=== PATIENT | male | born 1990 | race Caucasian/White ===

== ENCOUNTER 2025-09-27 07:16 | Emergency (ER) | payer OTHER, SELFPAY ==
--- OUTSIDE RECORDS SUMMARY | 2011-01-14 09:30 | XMS_ITS | Continuity of Care Document ---
Author Organization [facility] Address [address] [place] [address] Phone Care Team Providers Care Fisher Troll Line Name Role Phone Kaushal Leary Unavailable Unavailable Procedures Procedure Date OFFICE/OUTPATIENT VISIT, [facility] SPECIMEN HANDLING OFFICE/OUTPATIENT VISIT, [facility] TDAP VACCINE >7 IM Advance Directives Directive Yes / No Effective Date File Name No Information Encounters Encounter Description Practice Location Reason(s) For Visit Diagnoses Date Provider Providers Copied on Encounter OFFICE/OUTPAT IENT VISIT, [facility], [address], [place], [id number], [place] tel:[phone] [facility] No Information Sapphire Easley. [address], [place], [id number], [place]. tel:[phone] OFFICE/OUTPAT IENT VISIT, [facility], [address], [place], [id number], [place] tel:[phone] [facility] No Information Visci DO Donn. [address], [place], [id number], [place]. tel:[phone] Family History Family Member Type Diagnosis Age At Onset No Information Payers Payer name Insurance type Covered republican ID Authoriza tion(s) [employer] CI [id number] Social History Type Description Quantity Date Captured Comments Sex Male Smoking Status No Information Chief Complaint And Reason For Visit No Information Reason For Referral Reason For Referral No Information History Of Present Illness Encounter Date Complaint History Of Prese nt Illness No Information Functional Status Date Functional Assessmen t No Information Instructions Date Instruction Additional Infor mation No Information Assessments Type Assessment Date No Information Patient Care Teams Name Effective Dates (start - stop) Status Members No Information
[2025-09-27 07:23] VITALS: BP 140/90; PULSE 92; TEMP 36.6; O2SAT 99; BMI 25.0
--- NOTE | 2025-09-27 07:40 | ED_ITS ---
HPI HPI - General Adult General Chief complaint: Abdominal Pain Stated complaint: abdominal pain Time Seen by Provider: 09/27/25 07:25 Source: patient Mode of arrival: walk-in Limitations: no limitations History of Present Illness HPI narrative: 34-year-old male presents for the concern of kidney stones. He states he has been having some intermittent hematuria for a few days but has not had any specific flank or groin pain. He also states over the past 3 to 4 days he has had some epigastric pain with eating. It is a fullness. He does not drink alcohol heavily and has never had pancreatitis. No trauma to the abdomen. No fever chest pain or vomiting. Related Data Home Medications ?Medication ?Instructions ?Recorded ?Confirmed sertraline 50 mg tablet mg 09/27/25 Previous Rx's ?Medication ?Instructions ?Recorded hydrocodone 5 mg-acetaminophen 325 1 tab PO Q6H PRN pa in 5 days #20 09/27/25 mg tablet tabs ondansetron 4 mg disintegrating 4 mg PO Q6H PRN nausea and 09/27/25 tablet vomiting #20 tabs tamsulosin 0.4 mg capsule (Flomax) 0.4 mg PO DAILY #7 caps 09/27/25 Allergies Allergy/AdvReac Type Severity Reaction Status Date / Time No Known Drug Allergies Allergy Verified 09/27/25 07:23 Review of Systems ROS Narrative A ten point review of systems is negative except as noted above. PFSH PFSH Social History Little interest or pleasure in doing things: not at all Feeling down, depressed, or hopeless: not at all Exam Narrative Exam Narrative: Nurses note and vital signs reviewed General:The patient appears well and in no apparent distress.Patient is resting comfortably on cart. Skin:Warm, dry, no pallor noted.There is no rash noted. Head:Normocephalic, atraumatic Eye: Normal conjunctiva, no drainage Ears, Nose, Mouth, and Throat: oral mucosa is moist. Nares patent. Cardiovascular:Regular Rate and Rhythm Respiratory:Patient is in no distress, no accessory muscle use, lungs are clear to auscultation, no wheezing, rales or rhonchi Back:non-tender, no CVA tenderness bilaterally to percussion. GI: Mild tenderness in the epigastric area. No distention or masses. Musculoskeletal: The patient has no evidence of calf tenderness, no pitting edema, symmetrical pulses noted bilaterally Neurological:A&O, normal speech Psychiatric:Cooperative Constitutional Vital Signs, click to edit/add: Last Vital Signs Temp 97.8 F 09/27/25 07:23 Pulse 92 H 09/27/25 07:23 Resp 18 09/27/25 07:23 BP 140/90 09/27/25 07:23 Pulse Ox 99 09/27/25 07:23 O2 Del Method Room Air 09/27/25 07:23 Course Vital Signs Vital signs: Vital Signs Temperature 97.8 F 09/27/25 07:23 Pulse Rate 92 H 09/27/25 07:23 Respiratory Rate 18 09/27/25 07:23 Blood Pressure 140/90 09/27/25 07:23 Pulse Oximetry 99 09/27/25 07:23 Oxygen Delivery Method Room Air 09/27/25 07:23 Temperature 97.8 F 09/27/25 07:23 Pulse Rate 92 H 09/27/25 07:23 Respiratory Rate 18 09/27/25 07:23 Blood Pressure 140/90 09/27/25 07:23 Pulse Oximetry 99 09/27/25 07:23 Oxygen Delivery Method Room Air 09/27/25 07:23 Medical Decision Making MDM Narrative Medical decision making narrative: 3 mm stone is identified at the left UPJ junction. He is prescribed Flomax, Reedy, and Zofran and referred to urology. He was given a urine strainer and a specimen cup. Treatment diagnosis and follow-up were discussed with the patient. In terms of the epigastric pain, no specific findings were found on his testing. Gallbladder appears normal and liver and pancreas have normal blood work as well. Differential Diagnosis Differential Diagnosis: Kidney stone, UTI, pyelonephritis, gallbladder disease Lab Data Lab results reviewed: Yes I reviewed the patient's lab results Labs: Lab Results 09/27/25 09/27/25 Range/Units 07:30 07:33 WBC 12.0 H (4.0-11.0) 10^3/uL RBC 5.06 (4.70-6.10) 10^6/uL Hgb 15.9 (14.0-18.0) g/dL Hct 45.6 (42.0-54.0) % MCV 90.1 (80.0-94.0) fL MCH 31.4 (25.9-34.0) pg MCHC 34.9 (29.9-35.2) g/dL RDW 11.9 (11.0-15.0) % Plt Count 364 (150-450) 10^3/uL MPV 8.9 L (9.5-13.5) fL Neut % (Auto) 70.1 (43.0-75.0) % Lymph % (Auto) 16.9 L (20.5-60.0) % Lamar % (Auto) 10.0 (1.7-12.0) % Eos % (Auto) 2.2 (0.9-7.0) % Baso % (Auto) 0.5 (0.2-2.0) % Neut # (Auto) 8.4 H (1.4-6.5) 10^3/uL Lymph # (Auto) 2.0 (1.2-3.8) 10^3/uL Lamar # (Auto) 1.2 H (0.3-0.8) 10^3/uL Eos # (Auto) 0.3 (0.0-0.7) 10^3/uL Baso # (Auto) 0.1 (0.0-0.1) 10^3/uL Abs Immat Gran (auto) 0.03 (0.00-0.03) 10^3/uL Imm/Tot Granulo (auto) 0.3 (0.0-0.5) % Sodium 142 (136-145) mmol/L Potassium 3.9 (3.5-5.1) mmol/L Chloride 104 (98-107) mmol/L Carbon Dioxide 28.1 (21.0-32.0) mmol/L Anion Gap 13.8 BUN 11.0 (7.0-18.0) mg/dL Creatinine 0.94 (0.70-1.30) mg/dL Est GFR ( Amer) >60 (>=60 mL/min/1.73m^2) Est GFR (Non-Af Amer) >60 (>=60 mL/min/1.73m^2) BUN/Creatinine Ratio 11.7 Glucose 112 H (74-106) mg/dL Calcium 9.4 (8.5-10.1) mg/dL Total Bilirubin 0.8 (0.2-1.0) mg/dL Direct Bilirubin 0.2 (0.0-0.2) mg/dL AST 16 (15-37) U/L ALT 29 (16-63) U/L Alkaline Phosphatase 66 (46-116) U/L Total Protein 8.2 (6.4-8.2) g/dL Albumin 4.4 (3.4-5.0) g/dL Globulin 3.8 g/dL Albumin/Globulin Ratio 1.2 Amylase 59 (25-115) U/L Lipase 23.0 (16.0-77.0) U/L Urine Color Yellow (YELLOW) Urine Clarity Slightly cloudy A (CLEAR) Urine pH 6.0 (5.0-9.0) Ur Specific [place] 1.025 (1.005-1.025) Urine Protein 100 A (NEG/TRACE) mg/dL Urine Glucose (UA) Negative (NEGATIVE) mg/dL Urine Ketones Trace A (NEGATIVE) mg/dL Urine Occult Blood Large A (NEGATIVE) Urine Nitrite Negative (NEGATIVE) Urine Bilirubin Negative (NEGATIVE) Urine Urobilinogen 1.0 (0.2-1.0) EU/dL Ur Leukocyte Esterase Trace A (NEGATIVE) Urine RBC 75-100 A (0-2) #/HPF Urine WBC 0-2 A (NONE SEEN) #/HPF Ur Squamous Epith Cells None seen (NONE/RARE) #/LPF Urine Crystals None seen (None Seen) #/HPF Urine Bacteria Trace A (NONE SEEN) #/HPF Urine Casts None seen (NONE SEEN) #/LPF Urine Mucus Small A (NONE SEEN) Urine Sperm Seen Ur Culture Indicated? No Imaging Data CT scan - abdomen: Radiologist's impression: ITS Impressions Abdomen/Pelvis CT 09/27/25 07:50 IMPRESSION: BILATERAL NEPHROLITHIASIS. PARTIALLY OBSTRUCTING LEFT URETEROPELVIC JUNCTION STONE. Impression dictated by: Kimberley Lisa M.D. 09/27/2025 8:26 AM Dictation Location: [place] [address] Electronically authenticated by: [id number] Y Date: 09/27/2025 08:26 Discharge Plan Discharge Chief Complaint: Abdominal Pain Clinical Impression: Kidney stone Patient Disposition: Home, Self-Care Time of Disposition Decision: 08:52 Condition: Good Mode of Transportation: Private Vehicle Prescriptions / Home Meds: New hydrocodone-acetaminophen 5-325 mg tablet 1 tab PO Q6H PRN (Reason: pain) 5 Days Qty: 20 0RF tamsulosin [Flomax] 0.4 mg capsule 0.4 mg PO DAILY Qty: 7 0RF ondansetron 4 mg tablet,disintegrating 4 mg PO Q6H PRN (Reason: nausea and vomiting) Qty: 20 0RF No Action sertraline 50 mg tablet Print Language: Luxembourger Instructions: Kidney Stones (ED), How to Strain Your Urine (ED) Referrals: DEAN PICHARDO [Primary Care Provider, Family Practice] - 1 week Julio Norwood MD [Physician, Urology]
[2025-09-27 07:45] LABS: Hematocrit 45.6 % (42.0-54.0); Hemoglobin 15.9 g/dL (14.0-18.0); Immature Granulocytes Abs Auto 0.03 10^3/uL (0.00-0.03); Immature Granulocytes Pct Auto 0.3 % (0.0-0.5); Lymphocytes Absolute Auto 2.0 10^3/uL (1.2-3.8); Mean Corpuscular HGB Conc 34.9 g/dL (29.9-35.2); Mean Corpuscular Hemoglobin 31.4 pg (25.9-34.0); Mean Corpuscular Volume 90.1 fL (80.0-94.0); Platelet Count 364 10^3/uL (150-450); Red Blood Count 5.06 10^6/uL (4.70-6.10); White Blood Count 12.0 10^3/uL (4.0-11.0)
[2025-09-27 07:46] LABS: Glucose Urine UA NEGATIVE (NEGATIVE)
--- NOTE | 2025-09-27 07:50 | CT_ITS ---
The [address] [address] Patient Name: RIN COX MRN: [id number] date: 1990 Sex: M Assigned Patient Location: ER Current Patient Location: .[facility] Accession/Order Number: [id number] Exam Date: 09/27/2025 07:47 Report Date: 09/27/2025 08:26 At the request of: HO PALMA MD Procedure: CT abdomen pelvis wo con CT ABDOMEN AND PELVIS WITHOUT CONTRAST COMPARISON: None CLINICAL DATA: Low back pain and hematuria. History of kidney stones. Spiral axial unenhanced images were obtained through the abdomen and pelvis. This CT exam was performed using one or more following dose reduction techniques: Automated exposure control, adjustment of the mA and/or kV according to patient size, or use of iterative reconstruction technique. Limited cuts through the lung bases show no contributory findings. Evaluation of the intra-abdominal organs is slightly limited by the absence of contrast. No calcified gallstones are identified. No intrahepatic masses are seen. The spleen, pancreas and adrenal glands show no acute findings. There are tiny bilateral renal stones measuring up to 4 mm in size. There is mild left hydronephrosis. This is secondary to a stone at the ureteropelvic junction which measures 3 mm in size. No additional ureteral dilatation or stones are seen. The abdominal aorta is normal caliber. There are small retroperitoneal and mesenteric lymph nodes. No ascites is identified. There is a tiny umbilical hernia containing fat. There is suggestion of potential malrotation with colon on the left and small bowel on the right. The small bowel loops are not distended. The colon is decompressed and there is apparent wall thickening. Subtle thoracolumbar levoscoliotic curvature is seen at the spine. Images through the pelvis show no dilated small bowel. There is stool at the rectosigmoid colon. No diverticular disease is seen. The prostate is within normal limits for size. The urinary bladder is poorly distended for assessment. There are small benign-appearing inguinal lymph nodes. No ascites is seen. CT/CT abdomen pelvis wo con IMPRESSION: BILATERAL NEPHROLITHIASIS. PARTIALLY OBSTRUCTING LEFT URETEROPELVIC JUNCTION STONE. Impression dictated by: Kimberley Lisa M.D. 09/27/2025 8:26 AM Dictation Location: [place] [address] Electronically authenticated by: [id number] Y Date: 09/27/2025 08:26
[2025-09-27 08:00] LABS: Alanine Aminotransferase 29 U/L (16-63); Albumin Globulin Ratio 1.2; Albumin Level 4.4 g/dL (3.4-5.0); Alkaline Phosphatase 66 U/L (46-116); Amylase 59 U/L (25-115); Anion Gap 13.8; Aspartate Amino Transferase 16 U/L (15-37); Blood Urea Nitrogen 11.0 mg/dL (7.0-18.0); Calcium 9.4 mg/dL (8.5-10.1); Carbon Dioxide 28.1 mmol/L (21.0-32.0); Chloride 104 mmol/L (98-107); Estimated GFR (African America >60 (>=60 mL/min/1.73m^2); Estimated GFR (Non-African Ame >60 (>=60 mL/min/1.73m^2); Globulin 3.8 g/dL; Glucose 112 mg/dL (74-106); Lipase 23.0 U/L (16.0-77.0); Potassium 3.9 mmol/L (3.5-5.1); Sodium 142 mmol/L (136-145); Total Protein 8.2 g/dL (6.4-8.2)
[2025-09-27 08:06] LABS: Cast Seen? NONE SEEN #/LPF (NONE SEEN); Crystals Seen? None Seen #/HPF (None Seen); Urine Culture Indicated NO
--- OUTSIDE RECORDS SUMMARY | 2025-09-27 08:22 | XMS_ITS | Clinical Summary ---
Author Organization [facility] Address [address], [address] [place] [address] Care Team Providers Care Extrusion Press Supervisor Name Role Phone Frank Hart DO Primary Care Provider Unava ilable Allergies No known active allergies Medications MedicationSigDispense QuantityRefillsLast FilledStart DateEnd DateStatus sertraline (ZOLOFT) 50 MG tablet Take 1 tablet by mouth dailyActive sertraline (ZOLOFT) 25 MG tablet Take 1 tablet by mouth dailyActive atomoxetine (STRATTERA) 40 MG capsule Take 1 capsule by mouth daily06/09/2024ctive Active Problems ProblemNoted DateDiagnosed DateUreteral tpuafsex18/22/2024enal calculus 08/17/2024 Social History Tobacco UseTypesPacks/DayYears UsedDateSmoking Tobacco: Every DayCigarettes Smokeless Tobacco: Never Tobacco Cessation:Ready to Q uit: No; Counseling Given: Yes Alcohol UseStandard Drinks/WeekCommentsYes0 (1 standard drink = 0.6 oz pure alcohol)SociallyAUDIT-CAnswerDate RecordedQ1: How often do you have a drink containing alcohol?Never08/17/2024Q2: How many drinks containing alcohol do you have on a typical day when you are drinking?Patient does not drink08/17/2024Q3: How often do you have six or more drinks on one occasion?Never08/17/2024 Interpersonal Safety Domain Source: IP Abuse ScreeningAnswerDate Recorded Physical cxmpoRhkgar61/24/2024Verbal ppeiiUmbaqa43/24/2024Emotional abuseDenies 08/19/2024Financial izldzGtvuiy46/24/2024Sexual ksxfnPgdisj35/24/2024Sex and Gender InformationValueDate RecordedSex Assigned at BirthNot on fileLegal Sex Male08/17/2024 10:55 AM EDTGender IdentityNot on fileSexual OrientationNot on file Last Filed Vital Signs Vital SignReadingTime TakenCommentsBlood Vcuiwjsb513/6610/15/2024 9:10 AM EST Jnoqn324108/19/2024 10:30 AM SNGQyebhkjsjir13.9 ??C (96.6 ??F)10/15/2024 9:10 AM ESTRespiratory Bwib5033 10:30 AM EDTOxygen Juzrfdebix785%08/19/2024 10:30 AM EDTInhaled Oxygen Concentration--Fazjja72.4 kg (164 lb)10/15/2024 9:10 AM CWHWrjxhr977.6 cm (5' 6 )10/15/2024 9:10 AM ESTBody Mass Index26.4710/15/2024 9:10 AM EST Plan of Treatment DateTypeDepartmentCare Team (Latest Contact Info)Exwsvetqwyg57/19/2025 10:30 AM ESTOffice Visit [facility] Part of [address] [place] [phone] Azul Armendariz, ASPHALT DISTRIBUTOR OPERATOR - SNOWBOARDING INSTRUCTOR [address] [place] [address] [address] [place] [address] one year KUBHealth MaintenanceDue DateLast DoneCommentsDepression Screen 2003Varicella vaccine (1 of 2 - 13+ 2-dose series)2004HIV screen 2006Hepatitis C dzjijq7710/27/2009Hepatitis B vaccine (1 of 3 - 19+ 3-dose series)2010Pneumococcal 0-49 years Vaccine (1 of 2 - PCV)2010 DTaP/Tdap/Td vaccine (7 - Td or Tdap), 06/20/1997, 04/25/1993, Additional history existsFlu vaccine (#1)/1COVID- 19 Vaccine ( season)511/10/2022, 07/28/2021, 07/07/2021Hib mrdjlglHyvfiesdp15/30/1993, 09/04/1992, 05/19/1992, Additional history exists Polio hggjamyWjuxqafnp14/25/1997, 04/25/1993, 05/19/1992, Additional history existsHPV vaccine (No Doses Required)CompletedHepatitis A vaccineAged OutNo longer eligible based on patient's age to complete this topicMeningococcal (ACWY) vaccineAged OutNo longer eligible based on patient's age to complete this topicMeningococcal B vaccineAged OutNo longer eligible based on patient's age to complete this topic Medical Devices ImplantedTypeAreaManufacturerDevice IdentifierShelf Expiration DateModel / Serial / LotStent Uret 6fr L26cm Hydr+ Pgtl Tapr Tip Grad Bldr Mrk Lo - [id number] Implanted:Qty: 1 on 08/19/2024 [facility]04/[id number] / / [id number] Insurance MemberSubscriberPlan / Payer (Effective 2023-Present)Name:Isaiah Bradshaw Relation to Subscriber:SelfName:Isaiah Bradshaw Payer ID:Not on file Group ID:Not on file Type:[place] Address: [place] [id number] Advance Directives * Full Code (Latest Code Status on File) Date ActivatedDate AqyuzxpghsuIlgxkcxz45/24/2024 8:47 AM08/19/2024 12:52 PM Care Teams Team MemberRelationshipSpecialtyStart DateEnd Date Frank Hart DO [address] [place] [address] [facility] Fxabordf59/22/24
--- OUTSIDE RECORDS SUMMARY | 2025-09-27 08:22 | XMS_ITS | Clinical Summary ---
Author Organization [facility] Address [facility] [place] [address] Care Team Providers Care Computer Peripheral Equipment Operator Name Role Phone Thomasmila Frank Isaías ESPINAL Primary Care Provider [phone] Allergies No known active allergies Medications MedicationSigDispense QuantityRefillsLast FilledStart DateEnd DateStatus sertraline (ZOLOFT) 50 MG tablet TAKE 1 AND 1/2 TABLETS DAILY FOR POBXEXB9510/09/2020Active ondansetron (Zofran ODT) 4 MG disintegrating tablet Dissolve 1 (one) tablet (4 mg total) on top of tongue every 8 (eight) hours as needed for nausea . 15 tablet 10/24/2020Active Social History Tobacco UseTypesPacks/DayYears UsedDateSmoking Tobacco: NeverSmokeless Tobacco: NeverAlcohol UseStandard Drinks/WeekCommentsNot Currently0 (1 standard drink = 0.6 oz pure alcohol)Sex and Gender InformationValueDate RecordedSex Assigned at BirthNot on fileLegal JtaSnxf0702/19/2014 4:42 AM EDTGender IdentityNot on file Sexual OrientationNot on file Last Filed Vital Signs Vital SignReadingTime TakenCommentsBlood Sucatdsg834/7110/24/2020 7:39 PM EST Kojaz299410/24/2020 7:39 PM EGCLnkqlnnszjq26.2 ??C (99 ??F)10/24/2020 5:25 PM EST Respiratory Gyvg425012/25/2019 7:39 PM ESTOxygen Sxzevnjopj36%10/24/2020 7:39 PM ESTInhaled Oxygen Concentration--Enxcef49.5 kg (140 lb)10/24/2020 5:25 PM EST Ogibbq092.6 cm (5' 6 )10/24/2020 5:25 PM ESTBody Mass Index22.6112/25/2019 5:25 PM EST Plan of Treatment Health MaintenanceDue DateLast DoneCommentsMMR Vaccines (1 of 1 - Standard series)1992Wellness Visit1994Depression Screening/Follow-Up (PHQ-2/9)2003Varicella Vaccines (1 of 2 - 13+ 2-dose series)2004HIV Vzxhacnau97/01/2007Hepatitis C Cjtnetdth82/01/2010Hepatitis B Vaccines (1 of 3 - 19+ 3-dose series)2010Tetanus/Diphtheria/Pertussis (1 - Tdap)2010HPV Vaccines (1 - 3-dose SCDM series)2018COVID-19 Vaccine (1 - season) 2025Influenza Vaccine (#1)2025Zoster Vaccines (1 of 2)2RSV Vaccines (1 - 1-dose 75+ series)2066HIB VaccinesAged OutNo longer eligible based on patient's age to complete this topicHepatitis A VaccinesAged OutNo longer eligible based on patient's age to complete this topicIPV VaccinesAged OutNo longer eligible based on patient's age to complete this topicMeningococcal ACWY VaccineAged OutNo longer eligible based on patient's age to complete this topicMeningococcal B VaccineAged OutNo longer eligible based on patient's age to complete this topicPneumococcal VaccineAged OutNo longer eligible based on patient's age to complete this topicRotavirus VaccinesAged OutNo longer eligible based on patient's age to complete this topic Insurance * Guarantor: Isaiah Bradshaw TypeRelation to PatientDate of BirthPhone Billing AddressPersonal/PhnwxdJpam22/01/1991 [id number] (Home) [address] [place] [address] Care Teams Team MemberRelationshipSpecialtyStart DateEnd Date Frank Hart DO [address] [place] [address] [facility] Tvpnbgiv76/29/20
--- OUTSIDE RECORDS SUMMARY | 2025-09-27 08:22 | XMS_ITS | Clinical Summary ---
Author Organization [facility] Address [id number] [address] [place] [address] Care Team Providers Care Autocad Detailer Name Role Phone Frank Hart Primary Care Provider Allergies No known active allergies Medications No known medications Active Problems ProblemNoted DateDiagnosed AcpyKxkqzwjyxinwekx12/24/2018 Overview (12/17/2017): ==== 11/19/2017 ==== history of stones in the past. Past 1 in August 2017. No currently with abouta 5 day history of right renal colic. CT scan a few days ago demonstrated a 6.3 mm proximal right ureteral calculus. Also had some nonobstructing stones on the right. Left looked good. On tamsulosin.He is reasonably comfortable. No fevers no chills. ==== 12/17/2017 ==== despite medical expulsive therapy patient has stability of the stone. Assessment & Plan (12/17/2017 3:05 PM EST): He certainly demonstrated the fact that this has a very low likelihood of spontaneous stone passageand therefore we should treat the stone. He also has some nonobstructing stones higher up. Discussed ureteroscopy versus ESWL. Ross we could benefit of treating all the stones in 1 setting. Wishes todo so. This will be set up. Urologic szzikeiz65/24/2018 Overview (11/19/2017): CT scan demonstrated non urologic GI findings. I informed the patient of such. They did recommend aadditional study. I gave a copy of the patient's report to him he is to contact his primary care regarding this Assessment & Plan (12/17/2017 3:04 PM EST): Pt confirmed that he discussed this with his primary MD Family History Medical HistoryRelationNameCommentsNo Known ProblemsBrotherNo Known Problems FatherNephrolithiasisMotherNo Known ProblemsSisterRelationNameStatusComments BrotherAliveFatherAliveMotherAliveSisterAlive Social History Tobacco UseTypesPacks/DayYears UsedDateSmoking Tobacco: Every DayCigarettes Smokeless Tobacco: NeverAlcohol UseStandard Drinks/WeekCommentsYes0 (1 standard drink = 0.6 oz pure alcohol)occasionalChildcareAnswerDate RecordedChildcare Tvjeied3404/08/2019EmploymentAnswerDate DusicnkoHlmmevzwpjNscbaex06/13/2019Purpose - LifeAnswerDate RecordedPurpose and direction in fuatZtrdsqh54/11/2021Sex and Gender InformationValueDate RecordedSex Assigned at BirthNot on fileLegal Sex Male11/15/2017 3:54 AM ESTGender IdentityNot on fileSexual OrientationNot on file Last Filed Vital Signs Vital SignReadingTime TakenCommentsBlood Zyfzplrw916/8403 8:49 AM EST Nzxqq721812/30/2017 8:49 AM ZRFYfcoltbnmtk36.6 ??C (97.9 ??F)12/30/2017 8:49 AM ESTRespiratory Tjuv5411 8:49 AM ESTOxygen Qclrqytber263%12/30/2017 8:49 AM ESTInhaled Oxygen Concentration--Abpwgw43.3 kg (144 lb)12/30/2017 8:49 AM EST Qugugb072.6 cm (5' 6 )12/30/2017 8:49 AM ESTBody Mass Index23.24012/30/2017 8:49 AM EST Plan of Treatment Health MaintenanceDue DateLast DoneCommentsDepression Hgthvfogl39/01/2004Tobacco Ungbcphmq95/01/2004Adult BMI Hosuhnnui19/01/2010DTaP,Tdap and Td Vaccines (1 - Tdap)2010Influenza Bxvuuok7306/27/2025 Medical Devices ImplantedTypeAreaManufacturerDevice IdentifierShelf Expiration DateModel / Serial / Heladiotent Percuflex 6x28 - [id number] - [id number] Implanted:Qty: 1 on 12/22/2017 [facility] [employer] [id number] / [id number] / [id number]:with uereteroscope during fluoroscopy Insurance Care Teams Team MemberRelationshipSpecialtyStart DateEnd Date Frank Hart DO [address] [facility] [place] [address] PCP - General11/15/17
--- OUTSIDE RECORDS SUMMARY | 2025-09-27 08:22 | XMS_ITS | Clinical Summary ---
Author Organization [facility] Address [address] [place] [address] Care Team Providers Care Packaging Inspector Name Role Phone Frank Hart Primary Care Provider + [phone] Allergies No known active allergies Medications MedicationSigDispense QuantityRefillsLast FilledStart DateEnd DateStatus sertraline 50 MG tablet Take 50 mg by mouth daily.Active ibuprofen 800 MG tablet Take 1 tablet by mouth every 8 hours as needed for Moderate Pain. 30 tablet 05/17/2020Active Active Problems No known active problems Social History Tobacco UseTypesPacks/DayYears UsedDateSmoking Tobacco: Every DaySmokeless Tobacco: NeverAlcohol UseStandard Drinks/WeekCommentsYes0 (1 standard drink = 0.6 oz pure alcohol)AUDIT-CAnswerDate RecordedQ1: How often do you have a drink containing alcohol?2-4 times a month05/17/2020Average Number of DrinksNot on file05/17/2020Frequency of Binge DrinkingNot on file05/17/2020Sex and Gender InformationValueDate RecordedSex Assigned at BirthNot on fileLegal SexMale 05/17/2020 4:03 PM EDTGender IdentityNot on fileSexual OrientationNot on file Last Filed Vital Signs Vital SignReadingTime TakenCommentsBlood Zwxphmxk599/7405/17/2020 4:07 PM EDT Zjmfm328505/17/2020 4:07 PM MXJPemcukiydpj67.4 ??C (97.5 ??F)05/17/2020 4:07 PM EDTRespiratory Akli333905/17/2020 4:07 PM EDTOxygen Qhadubgwew60%05/17/2020 4:07 PM EDTInhaled Oxygen Concentration--Weight--Zwydxn828.6 cm (5' 6 )05/17/2020 4:08 PM EDTBody Mass Index-- Plan of Treatment Health MaintenanceDue DateLast DoneCommentsHEPATITIS C VIRUS XKMXXHQXR98/01/1992 VLFWBSL87 1991HIV SCREENING WVOIDLEWLQ85/01/2007HEP B VACCINE (1 of 3 - 19+ 3-dose series)2010TDAP (ADULT)2010HPV VACCINE (1 - 3-dose SCDM series)2018COVID-19 VACCINE (1 - 2024- season)2025INFLUENZA VACCINE (#1)2025PNEUMOCOCCAL VACCINE SERIESAged OutNo longer eligible based on patient's age to complete this topic Insurance Care Teams Team MemberRelationshipSpecialtyStart DateEnd Date Frank Hart DO [address] [place] [address] PCP - GeneralFamily Medicine05/17/20
== END 2025-09-27 09:08 | disposition home or self-care (01) ==
PROVIDERS: Emergency Provider Emergency Medicine; PCP Family Medicine
DX: N20.0 Calculus of kidney (principal)
CPT/HCPCS: 36415; 74176; 80048; 80076; 81001; 82150; 83690; 85025; 99284